=== PATIENT | male | born 1955 | race African-American/Black ===

== ENCOUNTER → 2016-09-18 | Outpatient (CLI) | payer OTHER ==
[2016-09-18 09:24] LABS: ALANINE AMINOTRANSFERASE 25 U/L (21-72); ALBUMIN 4.3 g/dL (3.5-5.0); ALKALINE PHOSPHATASE 50 U/L (38-126); ANION GAP 11 (5-19); ASPARTATE AMINO TRANSFERASE 23 U/L (17-59); BILIRUBIN,DIRECT 0.2 mg/dL (0.0-0.4); BILIRUBIN,TOTAL 0.5 mg/dL (0.2-1.3); BLOOD UREA NITROGEN 16 mg/dL (7-20); CALCIUM 9.6 mg/dL (8.4-10.2); CARBON DIOXIDE 27 mmol/L (22-30); CHLORIDE 101 mmol/L (98-107); CHOLESTEROL 186.71 mg/dL (0-200); CREATININE RESULT 1.14 mg/dL (0.52-1.25); Direct HDL 37 mg/dL (>40); GLUCOSE 104 mg/dL (75-110); MAGNESIUM 2.2 mg/dL (1.6-2.3); POTASSIUM 4.3 mmol/L (3.6-5.0); SODIUM 138.5 mmol/L (137-145); TOTAL PROTEIN 7.1 g/dL (6.3-8.2); TRIGLYCERIDES 464 mg/dL (<150)
[2016-09-18 09:35] LABS: DIRECT LDL 47 mg/dL (<100)
== END ==
LOC: OD 07:54
PROVIDERS: ATTEND Internal Medicine Cardiovascular Disease
DX: E78.2 Mixed hyperlipidemia (principal); R00.2 Palpitations; Z79.899 Other long term (current) drug therapy
CPT/HCPCS: 36415; 80048; 80061; 80076; 83735

== ENCOUNTER → 2017-05-22 | Outpatient (CLI) | payer OTHER ==
[2017-05-22 10:18] LABS: ANION GAP 12 (5-19); BLOOD UREA NITROGEN 12 mg/dL (7-20); CALCIUM 9.9 mg/dL (8.4-10.2); CARBON DIOXIDE 26 mmol/L (22-30); CHLORIDE 102 mmol/L (98-107); GLUCOSE 92 mg/dL (75-110); POTASSIUM 4.3 mmol/L (3.6-5.0); SODIUM 140.2 mmol/L (137-145)
[2017-05-23 09:40] LABS: CREATININE URINE 18.2 mg/dL (Not Estab.)
[2017-05-23 11:14] LABS: MICROALBUMIN URINE <3.0 ug/mL (Not Estab.)
== END ==
LOC: OD 08:23
PROVIDERS: ATTEND Internal Medicine Cardiovascular Disease
DX: I10 Essential (primary) hypertension (principal); R73.01 Impaired fasting glucose; Z79.899 Other long term (current) drug therapy
CPT/HCPCS: 36415; 80048; 82043; 82570; 83036

== ENCOUNTER → 2017-09-17 | Outpatient (CLI) | payer OTHER ==
[2017-09-17 11:35] LABS: ALANINE AMINOTRANSFERASE 28 U/L (21-72); ALBUMIN 4.7 g/dL (3.5-5.0); ALKALINE PHOSPHATASE 47 U/L (38-126); ASPARTATE AMINO TRANSFERASE 26 U/L (17-59); BILIRUBIN,DIRECT 0.3 mg/dL (0.0-0.4); BILIRUBIN,TOTAL 0.6 mg/dL (0.2-1.3); CHOLESTEROL 170.16 mg/dL (0-200); TOTAL PROTEIN 7.5 g/dL (6.3-8.2); TRIGLYCERIDES 181 mg/dL (<150)
[2017-09-17 11:47] LABS: DIRECT LDL 54 mg/dL (<100)
[2017-09-17 11:49] LABS: VLDL CHOLESTEROL 36.2 mg/dL (10-31)
== END ==
LOC: OD 10:18
PROVIDERS: ATTEND Internal Medicine Cardiovascular Disease
DX: E78.2 Mixed hyperlipidemia (principal); Z79.899 Other long term (current) drug therapy
CPT/HCPCS: 36415; 80061; 80076

== ENCOUNTER 2018-03-06 06:18 | Emergency (ER) | payer OTHER ==
--- NOTE | 2018-03-06 07:39 | ER Document Report ---
ED Blood Pressure Problem - General Chief Complaint: High Blood Pressure Stated Complaint: BLOOD PRESSURE ISSUE Time Seen by Provider: 03/06/18 07:01 Notes: 62-year-old male presents to ed with c/o high blood pressure. pt mom and brother is here with him. pt mom states they checked the bp at home 169//88 was the highest it got. pt mom states he was taking an antibiotic from a cold. pt finished the prednisone yesterday morning from this as well. pt stated he felt his heart racing last night so they brought him in this morning. pt mom states pt stated since he had started the new medications he felt "funny". pt woke up this morning and did not feel better so they brought him in to the ed. pt resp e /u and in nad. pt speaking in complete sentences. pt mom checked his BGL this morning and it was 103. pt states he does not have any palpations at this time. Family is really worried about the blood pressure. The patient still complains of cough congestion and wanted to have him checked. Denies any calf pain or leg swelling denies black bloody or tarry stools he denies any chest pain on presentation here. Complains of a lot of cough and congestion. TRAVEL OUTSIDE OF THE [place] IN LAST 30 DAYS: No - Related Data Allergies/Adverse Reactions: steroids Allergy (Uncoded 03/06/18 07:19) Past Medical History - Social History Smoking Status: Never Smoker Family History: None Patient has suicidal ideation: No Patient has homicidal ideation: No - Past Medical History Cardiac Medical History: Reports: Hx Hypercholesterolemia, Hx Hypertension Renal/ Medical History: Denies: Hx Peritoneal Dialysis - Immunizations Hx Diphtheria, Pertussis, Tetanus Vaccination: Yes Review of Systems - Review of Systems Constitutional: Chills, Fever EENT: Nose discharge, Sinus discharge, Throat pain Cardiovascular: Heart racing. denies: Chest pain, Dyspnea Respiratory: Cough, Sputum. denies: Hurts to breathe, Hemoptysis, Short of breath, Wheezing Gastrointestinal: denies: Diarrhea, Nausea, Vomiting Genitourinary: denies: Dysuria, Hematuria Musculoskeletal: denies: Back pain, Neck pain, Leg swelling Neurological/Psychological: denies: Headaches -: Yes All other systems reviewed and negative Physical Exam - Vital signs Vitals: Resp Pulse Ox 13 98 03/06/18 06:56 03/06/18 06:56 - Notes Notes: GENERAL_APPEARANCE: well_nourished, alert, cooperative VITALS: reviewed, see vital signs table. HEAD: no_swelling\\tenderness on the head. EYES: PERRL, EOMI, intermittent chronic strabismus of the right eye conjunctiva _clear. NOSE: Clear_nasal_discharge. Mild turbinate inflammation MOUTH: (-)decreased moisture. THROAT: no_throat_inflammation, no_airway_obstruction. no_lymphadenopathy NECK: supple, no_neck_tenderness, (-)thyromegaly. BACK: no_back_tenderness. CHEST_WALL: no_chest_tenderness. LUNGS: no_wheezing, no_rales, no_rhonchi, (-)accessory muscle use, good air exchange bilateral. HEART: normal_rate, normal_rhythm, normal_S1, normal_S2, (-)S3, (-)S4, no_ murmur, no_rub. ABDOMEN: soft, no_abd_tenderness, (-)guarding, (-)rebound, no_organomegaly, no_ abd_masses. EXTREMITIES: good pulses in all_extremities, no_swelling\\tenderness in the extremities, no_edema. SKIN: warm, dry, good_color, no_rash. MENTAL_STATUS: speech_clear, oriented_X_3, normal_affect, responds_ appropriately to questions. NEURO: Neg Motor or Sensory Deficits on exam, CN 2-12 intact, DTR 2+ symmetric x 4, No cerbellar signs Course - Re-evaluation Re-evalutation: 03/06/18 07:38 Patient presents with cough and cold-like symptoms. They are worried about the blood pressure. Patient just finished his last dose of prednisone yesterday. He was on Augmentin. He was being treated for sinus infection. Patient has been on the prednisone and been ill his blood pressures been running high and low. On my entry into the room it was 131/76. Patient has no neuro deficits no headaches no extremity numbness tingling or weakness. His lungs are fairly clear we will get a chest x-ray will check some generalized blood work. He takes 2 blood pressure medicines. Losartan metoprolol. He has not taken his metoprolol this morning. 03/06/18 09:42 Chest x-ray showed a faint density which may be a resolving infiltrate patient has been on Augmentin for a week. He still has several days left. I will have him continue this he is done with the prednisone which is likely increasing his blood pressure his blood pressures come down nicely he is asymptomatic he is resting comfortably he is not short of breath he has no oxygen garments. Patient will be discharged home. - Vital Signs Vital signs: Temp Pulse Resp BP Pulse Ox 98.5 F 57 L 18 154/82 H 99 03/06/18 09:36 03/06/18 09:36 03/06/18 09:36 03/06/18 09:36 03/06/18 09:36 - Laboratory Result Diagrams: 03/06/18 06:54 03/06/18 06:54 Laboratory results interpreted by me: 03/06/18 03/06/18 06:54 06:54 RBC 4.19 L Hgb 12.2 L Hct 36.6 L Plt Count 145 L Carbon Dioxide 31 H Total Protein 6.2 L - EKG Interpretation by Me EKG shows normal: Sinus rhythm Rate: Normal Rhythm: NSR [place]/QRS: RBBB Discharge - Discharge Clinical Impression: Hypertension Pneumonia Qualifiers: Pneumonia type: due to unspecified organism Laterality: left Lung location: lower lobe of lung Qualified Code(s): J18.1 - Lobar pneumonia, unspecified organism Condition: Good Instructions: High Blood Pressure ([facility]), Pneumonia ([facility]) Additional Instructions: Continue your antibiotic. You had a very small area on your chest x-ray which looks like a small bit of pneumonia that is resolving likely due to the antibiotics you are taking. The prednisone is likely making your blood pressure elevated. Otherwise there is no other acute abnormalities continue the antibiotics and follow-up with your family doctor to be rechecked. Referrals: DORIS LUNDY MD [Primary Care Provider] - Follow up as needed
[2018-03-06 07:54] LABS: ALANINE AMINOTRANSFERASE 24 U/L (21-72); ALBUMIN 3.6 g/dL (3.5-5.0); ALKALINE PHOSPHATASE 47 U/L (38-126); ANION GAP 10 (5-19); ASPARTATE AMINO TRANSFERASE 17 U/L (17-59); BILIRUBIN,DIRECT 0.3 mg/dL (0.0-0.4); BILIRUBIN,TOTAL 0.6 mg/dL (0.2-1.3); BLOOD UREA NITROGEN 13 mg/dL (7-20); CARBON DIOXIDE 31 mmol/L (22-30); CHLORIDE 98 mmol/L (98-107); GLUCOSE 96 mg/dL (75-110); POTASSIUM 3.6 mmol/L (3.6-5.0); SODIUM 138.8 mmol/L (137-145); TOTAL PROTEIN 6.2 g/dL (6.3-8.2)
[2018-03-06 07:57] LABS: ABSOLUTE LYMPHOCYTES (AUTO) 1.7 10^3/uL (0.5-4.7); ABSOLUTE MONOCYTES (AUTO) 0.7 10^3/uL (0.1-1.4); ABSOLUTE NEUT (AUTO) 7.4 10^3/uL (1.7-8.2); BASOPHILS % (AUTO) 0.1 % (0-2); EOSINOPHILS % (AUTO) 0.3 % (0-6); HEMATOCRIT 36.6 % (37.9-51.0); HEMOGLOBIN 12.2 g/dL (13.5-17.0); MEAN CORPUSCULAR HEMOGLOBIN 29.2 pg (27.0-33.4); MEAN CORPUSCULAR HGB CONC 33.5 g/dL (32.0-36.0); MEAN CORPUSCULAR VOLUME 87 fl (80-97); MONOCYTES % (AUTO) 6.8 % (3-13); PLATELET COUNT 145 10^3/uL (150-450); RED BLOOD COUNT 4.19 10^6/uL (4.35-5.55); RED CELL DISTRIBUTION WIDTH 13.5 % (11.5-14.0); SEGMENTED NEUTROPHILS % (AUTO) 75.8 % (42-78); TOTAL CELLS COUNTED % (AUTO) 100 %; WHITE BLOOD COUNT 9.8 10^3/uL (4.0-10.5)
--- NOTE | 2018-03-06 08:10 | RADIOLOGY REPORT (SQ) ---
EXAM DESCRIPTION: CHEST 2 VIEWS COMPLETED DATE/TIME: 03/06/2018 7:56 am REASON FOR STUDY: cough COMPARISON: None. EXAM PARAMETERS: NUMBER OF VIEWS: two views TECHNIQUE: Digital Frontal and Lateral radiographic views of the chest acquired. RADIATION DOSE: NA LIMITATIONS: none FINDINGS: LUNGS AND PLEURA: Faint parenchymal density overlies the right mid-lower lung zones, may be on the basis of early infiltrate. The left lung is clear. No pneumothorax or pleural effusion. MEDIASTINUM AND HILAR STRUCTURES: No masses or contour abnormalities. HEART AND VASCULAR STRUCTURES: Heart normal size. No evidence for failure. BONES: No acute findings. HARDWARE: None in the chest. OTHER: No other significant finding. IMPRESSION: 1. Faint vague parenchymal density overlies the right mid-lower lung zones, may represe nt early infiltrate. TECHNICAL DOCUMENTATION: JOB ID: [id number] [employer]- All Rights Reserved Reading location - IP/workstation name: [email or web address]
[2018-03-06 09:38] VITALS: BP 154/82
--- NOTE | 2018-03-06 12:01 | EKG REPORT ---
SEVERITY:- ABNORMAL ECG - SINUS RHYTHM RIGHT BUNDLE BRANCH BLOCK : Confirmed by: Tristan Carrero 06-Mar-2018 12:00:25
== END 2018-03-06 10:12 | disposition home or self-care (01) ==
LOC: ER 06:18
DX: I10 Essential (primary) hypertension (principal); J18.1 Lobar pneumonia, unspecified organism; J32.9 Chronic sinusitis, unspecified; I45.10 Unspecified right bundle-branch block; R05 Cough; R50.9 Fever, unspecified; R07.0 Pain in throat; J34.89 Other specified disorders of nose and nasal sinuses; Z88.8 Allergy status to other drugs, medicaments and biological substances; Z79.899 Other long term (current) drug therapy
CPT/HCPCS: 36415; 71046; 80053; 84484; 85025; 93005; 93010; 99284

== ENCOUNTER → 2018-10-16 | Outpatient (CLI) | payer OTHER ==
[2018-10-16 10:19] LABS: ALANINE AMINOTRANSFERASE 20 U/L (21-72); ALBUMIN 4.4 g/dL (3.5-5.0); ALKALINE PHOSPHATASE 51 U/L (38-126); ANION GAP 10 (5-19); ASPARTATE AMINO TRANSFERASE 23 U/L (17-59); BILIRUBIN,DIRECT 0.2 mg/dL (0.0-0.4); BILIRUBIN,TOTAL 0.5 mg/dL (0.2-1.3); BLOOD UREA NITROGEN 15 mg/dL (7-20); CALCIUM 9.9 mg/dL (8.4-10.2); CARBON DIOXIDE 25 mmol/L (22-30); CHLORIDE 103 mmol/L (98-107); CHOLESTEROL 176.72 mg/dL (0-200); GLUCOSE 99 mg/dL (75-110); POTASSIUM 3.9 mmol/L (3.6-5.0); SODIUM 137.8 mmol/L (137-145); TRIGLYCERIDES 289 mg/dL (<150)
[2018-10-16 10:30] LABS: DIRECT LDL 65 mg/dL (<100); VLDL CHOLESTEROL 57.8 mg/dL (10-31)
== END ==
LOC: OD 08:52
PROVIDERS: ATTEND Internal Medicine Cardiovascular Disease
DX: I10 Essential (primary) hypertension (principal); E78.2 Mixed hyperlipidemia; R73.01 Impaired fasting glucose; Z79.899 Other long term (current) drug therapy
CPT/HCPCS: 36415; 80048; 80061; 80076; 83036

== ENCOUNTER → 2019-04-14 | Outpatient (CLI) | payer OTHER ==
[2019-04-14 10:19] LABS: ANION GAP 11 (5-19); BLOOD UREA NITROGEN 15 mg/dL (7-20); CALCIUM 9.9 mg/dL (8.4-10.2); CARBON DIOXIDE 26 mmol/L (22-30); CHLORIDE 103 mmol/L (98-107); GLUCOSE 95 mg/dL (75-110); POTASSIUM 4.1 mmol/L (3.6-5.0); TRIGLYCERIDES 181 mg/dL (<150)
[2019-04-14 10:29] LABS: DIRECT LDL 80 mg/dL (<100)
[2019-04-14 10:36] LABS: VLDL CHOLESTEROL 36.2 mg/dL (10-31)
== END ==
LOC: OD 08:57
PROVIDERS: ATTEND Internal Medicine Cardiovascular Disease
DX: E78.2 Mixed hyperlipidemia (principal); R73.01 Impaired fasting glucose; R00.2 Palpitations
CPT/HCPCS: 36415; 80048; 80061; 83036

== ENCOUNTER → 2019-09-11 | Outpatient (CLI) | payer OTHER ==
[2019-09-11 12:36] LABS: ALBUMIN 4.5 g/dL (3.5-5.0); ALKALINE PHOSPHATASE 46 U/L (38-126); ANION GAP 5 (5-19); ASPARTATE AMINO TRANSFERASE 22 U/L (17-59); BILIRUBIN,DIRECT 0.2 mg/dL (0.0-0.4); BILIRUBIN,TOTAL 0.3 mg/dL (0.2-1.3); BLOOD UREA NITROGEN 12 mg/dL (7-20); CALCIUM 9.9 mg/dL (8.4-10.2); CARBON DIOXIDE 30 mmol/L (22-30); CHLORIDE 100 mmol/L (98-107); CHOLESTEROL 155.84 mg/dL (0-200); DIRECT LDL 69 mg/dL (<100); GLUCOSE 105 mg/dL (75-110); POTASSIUM 4.6 mmol/L (3.6-5.0); TOTAL PROTEIN 7.1 g/dL (6.3-8.2); TRIGLYCERIDES 238 mg/dL (<150); VLDL CHOLESTEROL 47.6 mg/dL (10-31)
== END ==
LOC: OD 11:47
PROVIDERS: ATTEND Physician Assistant
DX: E78.2 Mixed hyperlipidemia (principal); I10 Essential (primary) hypertension; Z79.899 Other long term (current) drug therapy
CPT/HCPCS: 36415; 80048; 80061; 80076

== ENCOUNTER → 2020-02-12 | Outpatient (CLI) | payer MEDICARE, OTHER ==
[2020-02-12 08:38] LABS: ALBUMIN 4.6 g/dL (3.5-5.0); ALKALINE PHOSPHATASE 41 U/L (38-126); ANION GAP 13 (5-19); ASPARTATE AMINO TRANSFERASE 28 U/L (17-59); BILIRUBIN,DIRECT 0.1 mg/dL (0.0-0.4); BILIRUBIN,TOTAL 0.5 mg/dL (0.2-1.3); BLOOD UREA NITROGEN 16 mg/dL (7-20); CALCIUM 10.1 mg/dL (8.4-10.2); CARBON DIOXIDE 25 mmol/L (22-30); CHLORIDE 101 mmol/L (98-107); CHOLESTEROL 169.01 mg/dL (0-200); GLUCOSE 112 mg/dL (75-110); TOTAL PROTEIN 7.3 g/dL (6.3-8.2); TRIGLYCERIDES 159 mg/dL (<150)
[2020-02-12 08:50] LABS: DIRECT LDL 62 mg/dL (<100)
[2020-02-12 08:56] LABS: VLDL CHOLESTEROL 31.8 mg/dL (10-31)
--- OUTSIDE RECORDS SUMMARY | 2020-02-13 14:55 | XMS REPORT ---
:1955 Author Organization [facility] Address [facility] [address] [place] [address] Care Team Providers Name Role Phone Unavailable Unavailable Unavailable Allergies, Adverse Reactions, Alerts Allergy Name Allergy Status Severity Reaction(s) Onset Inactive Treat ing Comments Type Date Date Clinician Cyclobenzapri Allergy to Active Moderate Irregular ne substance heart rate 6- 00:00: 00 Medications Ordered Filled Start Stop Current Ordering Indication Dosage Frequency Signature Comments Components Medication Medication Date Date Medication? Clinician (SIG) Name Name Besivance No Besivance 0.6 % eye 0.6 % eye drops,suspe drops,susp nsion ension erythromyci No erythromyc n 5 mg/gram in 5 (0.5 %) eye mg/gram ointment (0.5 %) eye ointment fenofibrate No fenofibrat nanocrystal e lized 145 nanocrysta mg tablet llized 145 Take 1 mg tablet tablet Take 1 every day tablet by oral every day route for by oral 90 days. route for 90 days. losartan 25 No losartan mg tablet 25 mg TK 1 T PO tablet TK QD 1 T PO QD metformin No metformin ER 750 mg ER 750 mg tablet,exte tablet,ext nded ended release 24 release 24 hr TAKE 1 hr TAKE 1 TABLET BY TABLET BY MOUTH TWICE MOUTH DAILY AFTER TWICE MEALS DAILY AFTER MEALS metoprolol No metoprolol succinate succinate ER 50 mg ER 50 mg tablet,exte tablet,ext nded ended release 24 release 24 hr TK 1 T hr TK 1 T PO QD IN PO QD IN THE MORNING THE MORNING rosuvastati No rosuvastat n 10 mg in 10 mg tablet TK 1 tablet TK T PO QD HS 1 T PO QD HS Problems Condition Condition Condition Status Onset Resolution Last Treatin g Comments Name Details Category Date Date Treatment Clinician Date Increased Increased Problem Active creatine Creatine 6-10 kinase Kinase 00:00: level Level 00 Multiple Multiple Problem Active complicatio Complicatio 3-12 ns due to ns Due to 00:00: type 2 Type 2 00 diabetes Diabetes mellitus Mellitus 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 00:00: 00 Right Right Problem Active 2017-04 bundle Bundle 2-13 branch Branch 00:00: block Block 00 Hypogonadis Hypogonadis Problem Active 2017-04 m m 2-13 00:00: 00 Bilateral Bilateral Problem Active cataracts Cataracts 4-11 00:00: 00 Hypertrigly Hypertrigly Problem Active ceridemia ceridemia 6-17 00:00: 00 Essential Essential Problem Active hypertensio Hypertensio n n Chronic Chronic Problem Active kidney Kidney disease Disease stage 2 Stage 2 Hyperlipide Hyperlipide Problem Active pamela pamela Nutritional Nutritional Problem Active anemia Anemia Procedures This patient has no known procedures. Results This patient has no known results. Assessments Condition Name Status Diagnosis Date Treating Clinici an Depression screening Active 2020-02-09 11:31:47 At low risk for fall Active 2020-02-09 11:31:51 Adult health examination Active 2020-02-09 11:31:44 Advance directive discussed with Active 2020-02-09 11:3 1:36 patient Encounters Start End Encounter Admission Attending Care Care Encounter Date/Time Date/Time Type Type Clinicians Facility Department ID 2020-02-09 2020-02-09 Araceli Blinkit [id number] 00:00:00 00:00:00 Refugio, Immediate Immediate & 109 PA-C: [facility], [place] [address], Ph. Immunizations Ordered Immunization Filled Immunization Date Status Commen ts Refusal Reason Name Name influenza, 2020-01-05 Completed injectable, 16:05:15 quadrivalent Tdap 2017-03-14 Completed 10:46:09 Hib, unspecified 2016-12-28 Completed formulation 00:00:00 influenza, 2014-01-02 Completed injectable, 00:00:00 quadrivalent influenza, 2010-01-07 Completed unspecified 00:00:00 formulation Plan of Treatment Planned Activity Planned Date Details Comments Future Appointment 2020-03-19 11:00:00 Seth Mendoza [facility]; , [place] [address] Future Appointment 2020-03-12 08:30:00 Nurse, Seth Parks ; , [place] [address] Social History Smoking Status Start Date Stop Date Never Smoker Vital Signs Vital Name Observation Time Observation Value Comments BP Diastolic 2020-02-09 00:00:00 67 mm[Hg] Height 2020-02-09 00:00:00 65 [in_i] BMI (Body Mass Index) 2020-02-09 00:00:00 23.9 kg/m2 BP Systolic 2020-02-09 00:00:00 132 mm[Hg] Body Weight 2020-02-09 00:00:00 143.4 [lb_av] Hospital Discharge Instructions 1. Adult health examination 2. Advance directive discussed with patient advance directives: careinstructions 3. Depression screening Patient Health Questionnaire-9 4. At low risk for fall fall risk screening Discussion Note FOLLOW UP IN OFFICE/EMERGENCY DEPARTMENT NEEDED IF NO BETTER AND/OR ANY POTENTIAL COMPLICATIONS AND/OR WORRISOME SIGNS OR SYMPTOMS DISCUSSED PRIOR TO DISCHARGE AND/OR SCHEDULED FOR REASONS DISCUSSED
== END ==
LOC: OD 07:06
PROVIDERS: ATTEND Physician Assistant
DX: E78.2 Mixed hyperlipidemia (principal); Z79.899 Other long term (current) drug therapy; R00.2 Palpitations; I10 Essential (primary) hypertension
CPT/HCPCS: 36415; 80048; 80061; 80076